=== PATIENT | female | born 1995 | race Caucasian/White ===

== ENCOUNTER 2016-07-27 16:37 | Emergency (ER) | payer MEDICAID, OTHER ==
--- NOTE | 2016-07-27 19:33 | ERNOTE ---
ER Female HPI Date of Service: 07/27/16 Stated Complaint: 6 WEEKS VAGINAL BLEEDING Time Seen by Provider: 07/27/16 19:19 Source: patient Exam Limitations: no limitations Immunizations: IMMUNIZATION HX Immunizations Up to Date Yes History of Influenza Vaccine No Hx Pneumococcal Vaccination No Allergies/Adverse Reactions: Allergies Penicillins Allergy (Verified 07/27/16 17:34) Home Medications: HOME MEDICATIONS Pnv95/Ferrous Fumarate/FA [ Caplet] 1 each PO DAILY 07/27/16 [Last Taken Unknown] - History of Present Illness Narrative: Pt. comes in with c/o spotting vaginal bleeding that started this morning. Pt. states that she noticed some a week ago after she but it resolved and then she noted blood when she urinated that has turned to spotting at this time. Pt. LMP was Jun 10 and that makes her 7 weeks by dates. Pt. denies any recent illness or injury, fever, NVD, SOB, or CP. Pt. denies any other symptoms including pain or cramping a this time. Review of Systems - Review of Systems Constitutional: Present: no symptoms reported. Absent: recent illness, fever, chills, weakness, malaise EYE: Present: no symptoms reported ENT: Present: no symptoms reported Respiratory: Present: no symptoms reported. Absent: shortness of breath, cough , wheezing Cardiology: Present: no symptoms reported. Absent: chest pain, palpitations, edema Gastrointestinal/Abdominal: Present: no symptoms reported. Absent: nausea, vomiting, diarrhea, abdominal pain Genitourinary: Present: discharge - blood. Absent: frequency, dysuria Skin: Present: no symptoms reported. Absent: rash, change in color Neurological: Present: no symptoms reported. Absent: headache, dizziness/light- headedness, numbness, tingling All Other Systems: All systems neg except as marked - Patient's Past Medical History Patient History - Medical: Depression Patient History - Cardiac/Respiratory: No pertinent hx Patient History - Cancer: No Hx of Cancer Patient History - Surgical Procedures: No surgical history LMP (females 10-50): - Social History Living Situations: home Smoking Status: Never smoker Alcohol Use: none Drug Use: none Physical Exam - Physical Exam General Appearance: Present: wd/wn, alert, no apparent distress Eye Exam: Normal inspection: bilateral, PERRL: bilateral, EOMI: bilateral Ears, Nose, Throat: Present: normal ENT inspection, hearing grossly normal, normal pharynx Neck: Present: normal inspection, nontender. Absent: lymphadenopathy (R), lymphadenopathy (L) Respiratory: Present: no respiratory distress, normal breath sounds, no accessory muscle use, chest nontender, lungs clear Cardiovascular/Chest: Present: regular rate, rhythm, no murmur, normal peripheral pulses Gastrointestinal/Abdominal: Present: normal bowel sounds, nontender, nondistended, soft, no organomegaly Back Exam: Present: normal inspection, normal range of motion, no CVA tenderness , no vertebral tenderness Extremity Exam: Present: normal inspection, non-tender, no edema, normal range of motion Neurological Exam: Present: alert, oriented, normal mood/affect, no motor/ sensory deficits Skin Exam: Present: normal color, warm/dry. Absent: pallor, skin rash Pelvic Exam: Present: other - mild spotting ED Progress - Date and Time Seen: Date and Time: 07/27/16 20:[address] Blanc and as I gave pt. rhogam he feels there is not much else to do with pt other than have her follow up as new ob pt. - Results and Orders Patient's Lab Results:: I have reviewed the patient's lab results. - Vital Signs Patient's Vital Signs:: I have reviewed the patient's vital signs. Vital Signs: Vital Signs 07/27/16 17:30 Temperature 36.0 C L Pulse Rate 75 Respiratory 16 Rate Blood Pressure 116/66 O2 Sat by Pulse 100 Oximetry - CT/Ultrasound CT/Ultrasound Narrative: US positive for IUP 6 wk 5 days FHB 130 ? subchorionic hemorrhage. - Progress/Reassessment Chief Complaint: OB Screening Progress:: Unchanged Departure Clinical Impression: Threatened miscarriage, Bleeding in early - Departure Disposition: Home self-care Condition: Good Instructions: Vaginal Bleeding During , First Trimester, Pelvic Rest Additional Instructions: No lifting over 5 pounds, please rest as much as possible, no sex until cleared by OB. Follow up with OB as planned on . Referrals: Clark Verdin DO [Primary Care Provider] -
[2016-07-27 19:39] LABS: Hematocrit 33.5 % (37.0-47.0); Hemoglobin 11.5 gm/dL (12.5-16.0); Mean Cell Volume 85.2 fl (78-100); Mean Corpuscular Hemoglobin 29.3 pg (27-31); Mean Corpuscular Hgb Conc 34.3 g/dl (32-36); Mean Platelet Volume 10.5 fl (6.0-9.5); Neutrophil # 8.4 K/mm3 (1.3-6.0); Neutrophil % 72.4 % (42-75.0); Platelet Count 242 K/mm3 (150-450); Red Blood Count 3.93 M/mm3 (4.2-5.4); Red Cell Distribution Width 12.5 % (11.5-14.0); White Blood Count 11.6 K/mm3 (4.0-10.5)
[2016-07-27] MEDS ORDERED: RHO(D) IMMUNE GLOBULIN 300 MCG DISP.SYRIN IM ONE (20:30)
[2016-07-27 21:22] VITALS: BP 91/57
[2016-07-27 21:25] LABS: Urine Appearance Slightly Cloudy; Urine Bilirubin Negative (NEGATIVE); Urine Blood 250 /ul (NEGATIVE); Urine Color Yellow; Urine Ketone Negative (NEGATIVE); Urine Nitrite Negative (NEGATIVE); Urine Protein 15 mg/dL (NEGATIVE); Urine Urobilinogen Normal (NORMAL); Urine pH 7.5 pH (5.0-7.0)
[2016-07-27 21:26] LABS: Urine Bacteria 1+; Urine WBC 0-5 /hpf (0-5)
== END 2016-07-27 21:48 | disposition home or self-care (01) ==
LOC: ER 16:37
DX: O20.9 Hemorrhage in early pregnancy, unspecified (principal); O20.0 Threatened abortion; Z3A.01 Less than 8 weeks gestation of pregnancy
CPT/HCPCS: 36415; 76801; 76817; 81001; 84702; 85025; 86900; 96372; 99283; J2790

== ENCOUNTER 2017-03-05 23:18 | Inpatient (IN) | payer OTHER ==
[2017-03-05] MEDS ORDERED: ONDANSETRON HCL/PF 2 MG/ML VIAL IV PRN (23:43)
[2017-03-05] MEDS ORDERED: RINGER'S SOLUTION,LACTATED 1,000 ML IV ONE (23:43)
[2017-03-05] MEDS ORDERED: DEXTROSE 5%-LACTATED RINGERS 1,000 ML IV PRN (23:43)
[2017-03-05] MEDS ORDERED: LIDOCAINE HCL 50 ML VIAL PERI PRN (23:43)
[2017-03-05] MEDS ORDERED: OXYTOCIN/DEXTROSE 5%-WATER 30 UNITS/500 ML BAG IV ONE (23:43)
[2017-03-05] MEDS ORDERED: LIDOCAINE HCL 50 ML VIAL ONE (23:56)
[2017-03-06] MEDS ORDERED: OXYTOCIN/DEXTROSE 5%-WATER 30 UNITS/500 ML BAG IV ONE ×2 (00:13→07:14)
[2017-03-06] MEDS ORDERED: DEXTROSE 5%-LACTATED RINGERS 1,000 ML IV PRN (00:13)
[2017-03-06] MEDS ORDERED: LIDOCAINE HCL 50 ML VIAL PERI PRN (00:13)
[2017-03-06] MEDS ORDERED: RINGER'S SOLUTION,LACTATED 1,000 ML IV ONE (00:13)
[2017-03-06] MEDS ORDERED: ONDANSETRON HCL/PF 2 MG/ML VIAL IV PRN (00:29)
[2017-03-06] MEDS ORDERED: BUPIVACAINE HCL/0.9 % NACL/PF 250 ML EP PRN (00:29)
[2017-03-06] MEDS ORDERED: NALOXONE HCL 1 MG/1 ML SYRG IV PRN (00:29)
[2017-03-06] MEDS ORDERED: fentaNYL CITRATE/PF 50 MCG/ML AMPUL IT SCH (00:30)
--- NOTE | 2017-03-06 01:17 | OR ---
Anesthesia Procedure Note - Anesthesia Procedure Note Narrative: Vital Signs - Last Taken Temp 36.9 C 03/06/17 00:50 Pulse 61 03/06/17 00:50 Resp 16 03/06/17 00:50 BP 134/87 03/06/17 00:50 Pulse Ox 100 03/06/17 00:50 03/06/17 01:16 ANESTHESIA PROCEDURE NOTE Date of Procedure: 03/06/2017 Time of procedure: 49. Performed by: Sunny Bowen CRNA Yardage Tufting Machine Operator: None. Preprocedure diagnosis: Active labor. Post procedure diagnosis: Same. Procedure: Insertion of labor epidural. Indications: The patient is a 21 -year-old prima para female in active labor requesting labor epidural for pain management. Findings: See below. Details of the procedure: The patient was placed in a sitting position. Back was prepped with DuraPrep. Patient was then draped in a sterile fashion. Lidocaine 1% was infiltrated to the skin and subcutaneous tissues at the level of the L3 4 interspace. The epidural space was identified using a 18-gauge Tuohy needle with [id number] technique. 20 mcg fentanyl was given intrathecally using a 27 ga. spinal needle. Epidural catheter was inserted without difficulty. Negative test dose was elicited using 5 mL of 1.5% preservative-free lidocaine plus epinephrine 1 200,000. The epidural catheter was then taped and secured in place. EBL: Minimal. Fluids: N/A. Specimen: N/A. Post procedure condition: The patient tolerated the procedure well. No complications were noted. Thank you for this consultation. King CRNA
--- NOTE | 2017-03-06 03:46 | OR ---
Operative Report - Dictated Report Narrative: Spontaneous vaginal delivery of viable female 0322 on 03/06/2017 with Apgars 9 and 9, weighing 2917 g in OA position. Cord clamping delayed approximately 1 minute Placenta delivered complete, intact, with three vessel cord Estimated blood loss: 100 mL Lacerations: First-degree bilateral periurethral laceration with no repair
[2017-03-06] MEDS ORDERED: IBUPROFEN 800 MG TABLET PO PRN ×2 (04:55→07:14)
[2017-03-06] MEDS ORDERED: GLYCERIN/WITCH HAZEL LEAF 40 APPL BOX TP PRN (07:14)
[2017-03-06] MEDS ORDERED: BENZOCAINE/MENTHOL 81 SPRAY CAN TP PRN (07:14)
[2017-03-06] MEDS ORDERED: oxyCODONE HCL/ACETAMINOPHEN 1 TAB TABLET PO PRN (07:14)
[2017-03-06] MEDS ORDERED: BISACODYL 10 MG SUPP.RECT RC PRN (07:14)
[2017-03-06] MEDS ORDERED: HYDROCORTISONE 30 APPL TUBE TP PRN (07:14)
[2017-03-06] MEDS ORDERED: SENNOSIDES 8.6 MG TABLET PO PRN (07:14)
[2017-03-06] MEDS: oxyCODONE HCL/ACETAMINOPHEN 1 TAB TABLET PO PRN ×4 (07:29→21:24)
[2017-03-06] MEDS ORDERED: PRENATAL VITS96/IRON FUM/FOLIC 1 TAB TABLET PO SCH (09:00)
[2017-03-06] MEDS: DOCUSATE SODIUM 100 MG CAPSULE PO SCH ×2 (10:00→21:25)
[2017-03-06] MEDS: PRENATAL VITS96/IRON FUM/FOLIC 1 TAB TABLET PO SCH (10:00)
[2017-03-06] MEDS: IBUPROFEN 800 MG TABLET PO PRN ×2 (13:27→19:39)
[2017-03-07] MEDS: oxyCODONE HCL/ACETAMINOPHEN 1 TAB TABLET PO PRN ×6 (01:01→22:59)
[2017-03-07] MEDS: IBUPROFEN 800 MG TABLET PO PRN ×3 (03:11→15:57)
[2017-03-07] MEDS: PRENATAL VITS96/IRON FUM/FOLIC 1 TAB TABLET PO SCH (08:14)
[2017-03-07] MEDS: DOCUSATE SODIUM 100 MG CAPSULE PO SCH ×3 (08:14→20:02)
--- NOTE | 2017-03-07 10:39 | PN ---
Subjective - Date and Time Seen Date: 03/07/17 Time: 10:37 Objective - Vitals Vitals: Last Vital Signs Temp 36.4 C L 03/07/17 01:01 Pulse 68 03/07/17 01:01 Resp 16 03/07/17 01:01 BP 99/55 03/07/17 01:01 Pulse Ox 98 03/06/17 19:41 Patient denies complaints. Lochia wnl Abdomen - soft, nontender Uterus - firm, at umbilicus - 1 No calf tenderness Impression: day #1 - s/p spontaneous vaginal delivery. Plan: Continue routine care. Cauti Physician Documentation - Urinary Catheter Management Urethral (Vazquez) Date of Insertion: 03/06/17 Time of Insertion: 01:57 Date of Removal: 03/06/17 Time of Removal: 03:10
[2017-03-08] MEDS: oxyCODONE HCL/ACETAMINOPHEN 1 TAB TABLET PO PRN ×4 (01:57→16:02)
[2017-03-08] MEDS: IBUPROFEN 800 MG TABLET PO PRN ×2 (01:57→09:19)
[2017-03-08] MEDS: DOCUSATE SODIUM 100 MG CAPSULE PO SCH (09:19)
[2017-03-08] MEDS: PRENATAL VITS96/IRON FUM/FOLIC 1 TAB TABLET PO SCH (09:19)
--- NOTE | 2017-03-08 13:25 | PN ---
Subjective - Date and Time Seen Date: 03/08/17 Time: 13:24 Objective - Vitals Vitals: Last Vital Signs Temp 36.2 C L 03/08/17 07:00 Pulse 62 03/08/17 07:00 Resp 16 03/08/17 07:00 BP 119/60 03/08/17 07:00 Pulse Ox 97 03/08/17 07:00 Patient denies complaints. Lochia wnl Abdomen - soft, nontender Uterus - firm, at umbilicus - 2 No calf tenderness Impression: day #2 - s/p spontaneous vaginal delivery. Plan: Routine discharge instructions Cauti Physician Documentation - Urinary Catheter Management Urethral (Vazquez) Date of Insertion: 03/06/17 Time of Insertion: 01:57 Date of Removal: 03/06/17 Time of Removal: 03:10
[2017-03-08 15:28] VITALS: BP 129/83
== END 2017-03-08 16:10 | disposition home or self-care (01) | DRG 775 ==
LOC: OBCLINIC 23:18 → OB 23:34
PROVIDERS: ADMIT Obstetrics & Gynecology; ATTEND Obstetrics & Gynecology
PROC: 10E0XZZ Delivery of Products of Conception, External Approach (ICD-10-PCS; principal; 2017-03-06)
PROC: 4A1HXCZ Monitoring of Products of Conception, Cardiac Rate, External Approach (ICD-10-PCS; 2017-03-06)
PROC: 00HU33Z Insertion of Infusion Device into Spinal Canal, Percutaneous Approach (ICD-10-PCS; 2017-03-06)
DX: O26.873 Cervical shortening, third trimester (principal); O99.02 Anemia complicating childbirth; D64.9 Anemia, unspecified; O70.0 First degree perineal laceration during delivery; Z3A.38 38 weeks gestation of pregnancy; Z37.0 Single live birth

== ENCOUNTER 2017-03-11 11:00 | Emergency (ER) | payer OTHER ==
[2017-03-11] MEDS ORDERED: NORMAL SALINE 1,000 ML IV ONE (11:39)
--- NOTE | 2017-03-11 11:48 | ERNOTE ---
Headache ER HPI - Narrative Date of Service: 03/11/17 - General Presenting Symptoms: headache Time Seen by Provider: 03/11/17 11:12 Source: patient Exam Limitations: no limitations - Immun/Allergies/Home Medications Immunizations: IMMUNIZATION HX Immunizations Up to Date Yes History of Influenza Vaccine No Hx Pneumococcal Vaccination No Allergies/Adverse Reactions: Allergies Penicillins Allergy (Verified 03/11/17 11:12) Home Medications: HOME MEDICATIONS Pnv95/Iron Fum/Folic Acid [ Caplet] 1 each PO DAILY 07/27/16 [Last Taken 03/05/17] Ibuprofen [Motrin] 200 - 800 mg PO Q6H PRN #100 tab 03/07/17 [Last Taken Unknown ] - History of Present Illness Narrative: Pt. comes in with c/o headache for three days. Pt. states that she attempted to take ibuprofen for the headache and it worsened. Pt. has been unable to eat due to the nausea and vomiting that is associated with the headache and states that it is worse with standing and sitting up and is improved slightly by laying flat. Pt. gave with an epidural in place 6 days ago and denies any headaches or blood pressure problems during . Review of Systems - Review of Systems Constitutional: Present: no symptoms reported. Absent: fever, chills, weakness , fatigue, malaise EYE: Present: no symptoms reported ENT: Present: no symptoms reported Respiratory: Present: no symptoms reported. Absent: shortness of breath, cough , wheezing Cardiology: Present: no symptoms reported. Absent: chest pain, palpitations, edema Gastrointestinal/Abdominal: Present: no symptoms reported Genitourinary: Present: no symptoms reported Musculoskeletal: Present: no symptoms reported. Absent: back pain, neck pain, joint pain Skin: Present: no symptoms reported. Absent: rash, change in color Neurological: Present: headache. Absent: dizziness/light-headedness, numbness, tingling All Other Systems: All systems neg except as marked - Patient's Past Medical History Patient History - Medical: Depression Patient History - Cardiac/Respiratory: No pertinent hx Patient History - Cancer: No Hx of Cancer Patient History - Surgical Procedures: No surgical history Patient History - Other: None LMP (Calendar): 06/10/16 - Social History Living Situations: home Abuse History: No History of abuse Psych History: Hx of Depression Alcohol Use: none Drug Use: none - Immunizations Immunizations Up to Date: Yes Hx Pneumococcal Vaccination: No History of Influenza Vaccine: No Physical Exam - Physical Exam General Appearance: Present: wd/wn, alert, no apparent distress Head Exam: Present: normal inspection, no evidence of injury Eye Exam: Normal inspection: bilateral, PERRL: bilateral, EOMI: bilateral Ears, Nose, Throat: Present: normal ENT inspection, normal pharynx Neck: Present: normal inspection, nontender. Absent: lymphadenopathy (R), lymphadenopathy (L) Respiratory: Present: no respiratory distress, normal breath sounds, no accessory muscle use, chest nontender, lungs clear Cardiovascular/Chest: Present: regular rate, rhythm, no murmur, normal peripheral pulses Gastrointestinal/Abdominal: Present: normal bowel sounds, nontender, nondistended, soft, no organomegaly Back Exam: Present: normal inspection, normal range of motion, no CVA tenderness , no vertebral tenderness Extremity Exam: Present: normal inspection, non-tender, normal range of motion, no edema Neurological Exam: Present: alert, oriented, normal mood/affect, no motor/ sensory deficits Skin Exam: Present: normal color, warm/dry ED Progress - Date and Time Seen: Date and Time: 03/11/17 12:39 IRENE hendricks here to place blood patch recommends having pt remain for 20minutes post for observation. 03/11/17 13:27 Pt. developed back pain after blood patch placed. - Results and Orders Patient's Lab Results:: I have reviewed the patient's lab results. - Vital Signs Patient's Vital Signs:: I have reviewed the patient's vital signs. Vital Signs: Vital Signs 03/11/17 11:07 Temperature 35.9 C L Pulse Rate 63 Respiratory 12 Rate Blood Pressure 114/62 O2 Sat by Pulse 99 Oximetry - Progress/Reassessment Chief Complaint: Headache Progress:: Improved Departure Clinical Impression: Spinal headache - Departure Disposition: Home self-care Condition: Good Instructions: Epidural Blood Patch for Spinal Headache, Care After, Spinal Headache, Risks and Benefits of Epidural Anesthesia Additional Instructions: Please follow up with [facility]obe architect in 2-3 days. Continue tylenol and Ibuprofen for pain. Referrals: Rachael Patel ARNP [Primary Care Provider] -
[2017-03-11 12:03] LABS: Hematocrit 32.7 % (37.0-47.0); Hemoglobin 11.7 gm/dL (12.5-16.0); Mean Cell Volume 87.2 fl (78-100); Mean Corpuscular Hemoglobin 31.2 pg (27-31); Mean Corpuscular Hgb Conc 35.8 g/dl (32-36); Neutrophil # 7.3 K/mm3 (1.3-6.0); Platelet Count 195 K/mm3 (150-450); Red Blood Count 3.75 M/mm3 (4.2-5.4); Red Cell Distribution Width 11.9 % (11.5-14.0); White Blood Count 9.5 K/mm3 (4.0-10.5)
[2017-03-11 12:17] LABS: Anion Gap 18.1 mmol/L (6.8-13.8); BUN/Creatinine Ratio 17.1 (9.0-21.6); Bilirubin, Total 0.4 mg/dL (0.0-1.1); Ca. Corrected For Albumin 8.8 mg/dL (8.4-10.2); Calcium * 8.3 mg/dL (7.9-10.9); Carbon Dioxide 21.5 mmol/L (24-32.6); Potassium 3.6 mmol/L (3.4-4.6); Total Protein 6.7 gm/dL (6.2-8.2)
--- NOTE | 2017-03-11 13:17 | OR ---
Anesthesia Procedure Note - Anesthesia Procedure Note Narrative: Vital Signs - Last Taken Temp 35.9 C L 03/11/17 11:07 Pulse 56 L 03/11/17 13:11 Resp 18 03/11/17 13:11 BP 125/87 03/11/17 13:11 Pulse Ox 99 03/11/17 13:11 O2 Oxygen Delivery Method Room Air 03/11/17 13:12 ANESTHESIA PROCEDURE NOTE Date of procedure: 03/11/2017. Time of procedure: 1305. Performed by: Sunny Bowen CRNA Scaler Packer: Emergency room RN . Preprocedure diagnosis: Post dural puncture headache. Post procedure diagnosis: Same. Procedure: Epidural blood patch Indications: Post dural puncture headache. Findings: Patient presents with symptoms of PDPH. Patient had labor analgesia via a combined spinal epidural technique on 03/06/2017. Patient was placed in the sitting position. Her back was prepped with DuraPrep. Epidural space was identified at the L3 4 interspace with a 22-gauge Touhy epidural needle. A total of 15 mL of autologous blood was injected into the epidural space. Epidural needle was removed intact. A Band-Aid was applied to the puncture site. EBL: Minimal. Fluids: N/A. Specimen: N/A. Post procedure condition: The patient tolerated the procedure well. No complications were noted. Thank you for this consultation Sunny Bowen CRNA
[2017-03-11] MEDS ORDERED: ACETAMINOPHEN 500 MG TABLET PO ONE (13:25)
[2017-03-11] MEDS ORDERED: KETOROLAC TROMETHAMINE 60 MG/2 ML VIAL IM ONE (13:51)
[2017-03-11] MEDS ORDERED: KETOROLAC TROMETHAMINE 30 MG/ML VIAL ONE (13:55)
[2017-03-11] MEDS ORDERED: KETOROLAC TROMETHAMINE 30 MG/ML VIAL IV ONE (13:55)
[2017-03-11 18:00] VITALS: BP 119/79
== END 2017-03-11 14:00 | disposition home or self-care (01) ==
LOC: ER 11:00
PROC: 3E0S3GC Introduction of Other Therapeutic Substance into Epidural Space, Percutaneous Approach (ICD-10-PCS; principal; 2017-03-11)
DX: G97.1 Other reaction to spinal and lumbar puncture (principal)

== ENCOUNTER 2019-04-22 11:07 | Inpatient (IN) ==
[2019-04-22] MEDS ORDERED: ONDANSETRON 4 MG TAB.RAPDIS PO PRN (11:22)
[2019-04-22] MEDS ORDERED: DEXTROSE 5%-LACTATED RINGERS 1,000 ML IV PRN (11:22)
--- NOTE | 2019-04-22 11:45 | HP ---
Chief Complaint - Chief Complaint Date of Service: 04/22/19 Time of Service: 11:39 Chief Complaint: contractions History of Present Illness: 23 yo at 38 1/7 wks presents to L&D from office for labor. Pt doesn't feel contractions are very painful but is having them every 2-3 min and making cervical change. This complicated by anemia, h/o migraine, and, h/o anxiety/depression. Rh negative Rubella immune GBS negative Medical History (Updated 02/12/19 @ 13:32 by Freeman Roque RN) Migraine (Resolved) Onset Date: Unknown occasional Depressed (Acute) Onset Date: Unknown last meds for tx 2017 Anxiety (Acute) Onset Date: Unknown last med tx 2017 Headache Onset Date: Unknown Anemia Onset Date: ~2016 2016 & 2019-w/pregnancies UTI (urinary tract infection) Onset Date: Unknown Surgical History: Surgical History (Updated 07/23/18 @ 11:39 by Araceli Garcia CMA) History of wisdom tooth extraction Onset Date: Unknown at 19 years old Family History: Family History (Updated 07/23/18 @ 11:37 by Araceli Garcia CMA) Mother Alive and well Father Alive and well Brother Alive and well Sister Alive and well Grandmother COPD (chronic obstructive pulmonary disease) Cancer Grandfather Hypertension Social History: (Last Reviewed 04/22/19 @ 11:41 by Clark Verdin DO) Social History: Marital status: Single household members: children, significant other current occupational status: unemployed Highest education level completed: high school graduate Service: No Tobacco: Smoking Status: Former smoker Alcohol: alcohol intake: former Substance Use: substance use type: does not use Dietary Habits: caffeine: Yes Type: coffee Personal Safety: victim of physical abuse: No victim of emotional abuse: No victim of sexual abuse: No Review Of Systems (GEN) - Review of Systems Generalized/Overall Review: Present: No Symptoms Reported EENTM: Present: No Symptoms Reported Respiratory: Present: No Symptoms Reported Cardiac: Present: No Symptoms Reported Abdominal: Present: Other - mild pain with contractions Genitourinary: Present: No Symptoms Reported, Other - vaginal pressure Musculoskeletal: Present: No Symptoms Reported Neurological: Present: No Symptoms Reported Skin: Present: No Symptoms Reported Endocrine: Present: No Symptoms Reported Immunizations: IMMUNIZATION HX Immunizations Up to Date Yes History of Influenza Vaccine No Hx Pneumococcal Vaccination No Allergies/Adverse Reactions: Allergies Allergy/AdvReac Type Severity Reaction Status Date / Time Penicillins Allergy Unknown unknown Verified 04/22/19 10:03 Home Medications: HOME MEDICATIONS vitamins no.121-iron 28 mg-folic acid 800 mcg tablet 1 tab PO DAILY tab 09/29/18 [Last Taken Unknown] ferrous sulfate 325 mg (65 mg iron) tablet 325 mg PO DAILY #30 tab 02/12/19 [Last Taken Unknown] Exam - Exam Vital Signs: Vital Signs - Last Taken Temp 36.9 C 04/22/19 11:35 Pulse 82 04/22/19 11:35 Resp 20 04/22/19 11:35 BP 104/71 04/22/19 11:35 Pulse Ox 99 04/22/19 11:35 Constitutional: Present: Alert, Oriented x3, Cooperative, No distress ENT Exam: Present: hearing grossly normal Breasts: Present: Exam deferred Respiratory: Present: lungs clear, no respiratory distress Cardiovascular/Chest: Present: regular rate, rhythm Abdomen: Present: soft, nontender, no rebound tenderness, other - gravid /Rectal: Present: Other - cervix 5/90/-1 Extremity: Present: no pedal edema, no calf tenderness Skin Exam: Present: normal color, warm/dry, no cyanosis Neurologic: Present: alert, normal mood/affect, oriented x 3 Appearance: Present: appropriate appearance, appropriate insight Eye contact: Present: cooperative, good eye contact Thoughts: Present: normal thought pattern, normal mood /affect Diagnostic Studies: NST reactive. Assessment/Plan - Assessment/Plan (1) Labor established Assessment: Admit for routine management of labor. Epidural and Pitocin PRN. Problem: Acute
[2019-04-22 12:31] LABS: Cocaine Ur Negative (NEGATIVE); Urine Barbiturate Negative (NEGATIVE); Urine Benzodiazepines Negative (NEGATIVE); Urine Opiates Negative (NEGATIVE); Urine PCP Negative (NEGATIVE); Urine THC Negative (NEGATIVE)
[2019-04-22] MEDS: RINGER'S SOLUTION,LACTATED 1,000 ML IV ONE ×2 (12:49→14:45)
--- NOTE | 2019-04-22 13:04 | PN ---
Progess Note - Interim Date: 04/22/19 Time: 13:02 Narrative: 04/22/19 13:02 Patient desiring epidural Vital signs stable. FHT: 145 baseline, reassuring contractions q 2-3 min Cervix: 5-6/1 100/-1, AROM-clear Impression: Intrauterine at 38 1/7 weeks in labor Plan: Start fluid bolus in preparation for epidural placement.
[2019-04-22] MEDS ORDERED: ONDANSETRON HCL/PF 2 MG/ML VIAL IV PRN (13:30)
[2019-04-22] MEDS ORDERED: fentaNYL CITRATE/PF 50 MCG/ML AMPUL IT SCH (13:30)
[2019-04-22] MEDS ORDERED: NALOXONE HCL 1 MG/1 ML SYRG IV PRN (13:30)
[2019-04-22] MEDS ORDERED: BUPIVACAINE HCL/0.9 % NACL/PF 250 ML EP PRN (13:30)
--- NOTE | 2019-04-22 14:00 | ANES ---
Anesthesia Pre Procedure Eval Vitals/Labs: Last Vital Signs Temp 36.9 C 04/22/19 11:35 Pulse 82 04/22/19 11:35 Resp 20 04/22/19 11:35 BP 104/71 04/22/19 11:35 Pulse Ox 99 04/22/19 11:35 HOME MEDICATIONS ferrous sulfate 325 mg (65 mg iron) tablet 325 mg PO DAILY #30 tab 02/12/19 [Last Taken Unknown] Vits96/Iron Fum/Folic [ S] 1 tab PO DAILY 04/22/19 [Last Taken 04/21/19] Allergies/Adverse Reactions: Allergies Allergy/AdvReac Type Severity Reaction Status Date / Time Penicillins Allergy Unknown unknown Verified 04/22/19 10:03 - Planned Procedure Planned Procedure: ACTIVE LABOR Medication List Reviewed:: Yes Allergies Verified: Yes Medical History (Updated 04/22/19 @ 11:45 by Clark Verdin DO) Migraine (Resolved) Onset Date: Unknown occasional Depressed (Acute) Onset Date: Unknown last meds for tx 2016 Anxiety (Acute) Onset Date: Unknown last med tx 2016 Headache Onset Date: Unknown Anemia Onset Date: ~2016 2016 & 2019-w/pregnancies UTI (urinary tract infection) Onset Date: Unknown Surgical History (Updated 04/22/19 @ 11:45 by Clark Verdin DO) History of wisdom tooth extraction Onset Date: Unknown at 19 years old Family History (Updated 07/23/18 @ 11:37 by Araceli Garcia CMA) Mother Alive and well Father Alive and well Brother Alive and well Sister Alive and well Grandmother COPD (chronic obstructive pulmonary disease) Cancer Grandfather Hypertension - Family Anesthesia History Family History:: no untoward family reactions to anesthesia - Airway/Neck/Teeth Within Normal Limits:: Yes Teeth Condition: intact Neck Exam: full range of motion Mallampatti Score: 1 Thyromental (T-M) distance: > 6 cm Mandibulo Hyoid distance: > 3 cm - Respiratory Respiratory History: asthma Respiratory Physical: lungs clear Smoking Status: Never smoker Sleep Apnea currently treated: No Sleep Apnea by current assessment: No - Cardiovascular Tolerate Activity: Good Heart Sounds: S1 & S2, Regular - Anesthesia Assessment and Plan ASA Class: PS, II, E Anesthesia Type Plan: Epidural Planned difficult intubation/equipment available: No
--- NOTE | 2019-04-22 14:00 | ANES ---
Post Anesthesia Discharge - Transfer of Care Transfer of Care handoff given to nurse: Yes - Anesthesia Post Op Note Anesthesia Post Op Note: Care transferred to OB RN
--- NOTE | 2019-04-22 14:01 | ANES ---
Post Anesthesia Assessment - Vital Signs Vitals: Last Vital Signs Temp 36.9 C 04/22/19 11:35 Pulse 82 04/22/19 11:35 Resp 20 04/22/19 11:35 BP 104/71 04/22/19 11:35 Pulse Ox 99 04/22/19 11:35 Airway Patency: Normal - Mental Status Level Of Consciousness: Awake - Pain Level Pain Score: 2 - N/V Assessment Nausea/Vomiting Presence: None Dehydration:: No
--- NOTE | 2019-04-22 14:02 | ANES ---
Anesthesia Procedure Note Procedure Note: ANESTHESIA PROCEDURE NOTE Date of Procedure: 04/22/2019 Time of procedure: 1345. Performed by: Sunny Bowen CRNA Customer Success Advocate: None. Preprocedure diagnosis: Active labor. Post procedure diagnosis: Same. Procedure: Insertion of labor epidural. Indications: The patient is a 23-year-old multigravid female in active labor requesting labor epidural for pain management. Findings: See below. Details of the procedure: The patient was placed in a sitting position. Back was prepped with DuraPrep. Patient was then draped in a sterile fashion. Lidocaine 1% was infiltrated to the skin and subcutaneous tissues at the level of the L3 4 interspace. The epidural space was identified using a 18-gauge Tuohy needle with [id number] technique. 20 mcg fentanyl was given intrathecally using a 27 ga. spinal needle. Epidural catheter was inserted without difficulty. Negative test dose was elicited using 5 mL of 1.5% preservative-free lidocaine plus epinephrine 1 200,000. The epidural catheter was then taped and secured in place. EBL: Minimal. Fluids: N/A. Specimen: N/A. Post procedure condition: The patient tolerated the procedure well. No complications were noted. Thank you for this consultation. King CRNA
[2019-04-22] MEDS: OXYTOCIN/DEXTROSE 5%-WATER 30 UNITS/500 ML BAG IV ONE ×2 (14:52→16:30)
[2019-04-22] MEDS ORDERED: SENNOSIDES 8.6 MG TABLET PO PRN (16:40)
[2019-04-22] MEDS ORDERED: HYDROCORTISONE 30 APPL TUBE TP PRN (16:40)
[2019-04-22] MEDS ORDERED: BISACODYL 10 MG SUPP.RECT RC PRN (16:40)
[2019-04-22] MEDS ORDERED: GLYCERIN/WITCH HAZEL LEAF 40 APPL BOX TP PRN (16:40)
[2019-04-22] MEDS ORDERED: OXYTOCIN/DEXTROSE 5%-WATER 30 UNITS/500 ML BAG IV ONE (16:40)
[2019-04-22] MEDS ORDERED: BENZOCAINE/MENTHOL 81 SPRAY CAN TP PRN (16:40)
--- NOTE | 2019-04-22 16:59 | OR ---
Operative Report - Dictated Report Narrative: Spontaneous vaginal delivery of vigorously crying viable female at 1624 on 04/22/2019 with Apgars 9 and 9, weighing 3390 g in ADRIANA position with left hand at face. Cord clamping delayed approximately 1 minute Placenta delivered complete, intact, with three vessel cord Estimated blood loss: Less than 50 ml Anesthesia: Epidural Lacerations: None History for MU History for MU Definition: * The number of deliveries resulting in a live the patient experienced prior to current hospitalization * The previous delivery of live twins or any live multiple gestation is considered one live event. *If primagravida or nulliparous is documented select zero for the number of previous live births. Live Events: Live Events: 1
[2019-04-22] MEDS: oxyCODONE HCL/ACETAMINOPHEN 1 TAB TABLET PO PRN ×2 (17:59→22:17)
[2019-04-22] MEDS: IBUPROFEN 800 MG TABLET PO PRN (18:00)
[2019-04-22] MEDS ORDERED: RHO(D) IMMUNE GLOBULIN 1,500 UNIT SYRINGE IM ONE (22:00)
[2019-04-22] MEDS: DOCUSATE SODIUM 100 MG CAPSULE PO SCH (22:06)
[2019-04-23] MEDS: IBUPROFEN 800 MG TABLET PO PRN ×3 (02:34→18:49)
[2019-04-23] MEDS: oxyCODONE HCL/ACETAMINOPHEN 1 TAB TABLET PO PRN ×4 (03:57→18:49)
[2019-04-23] MEDS: PRENATAL VITS96/IRON FUM/FOLIC 1 TAB TABLET PO SCH (08:24)
[2019-04-23] MEDS: DOCUSATE SODIUM 100 MG CAPSULE PO SCH ×2 (08:24→21:58)
[2019-04-23] MEDS: FERROUS SULFATE 325 MG TABLET PO SCH (08:24)
--- NOTE | 2019-04-23 21:25 | PN ---
Subjective - Date and Time Seen Date: 04/23/19 Time: 21:24 Objective - Vitals Vitals: Last Vital Signs Temp 37.2 C 04/23/19 20:02 Pulse 68 04/23/19 20:02 Resp 16 04/23/19 20:02 BP 117/74 04/23/19 20:02 Pulse Ox 99 04/23/19 20:02 Patient complains of headache 6 out of 10, worse sitting up, better lying down flat. Has history of spinal headache with last delivery. Lochia wnl abdomen - soft, nontender Uterus -firm, at umbilicus - 2 no calf tenderness Impression: day #1 - s/p spontaneous vaginal delivery. Plan: Continue routine care. With patient stay lying down tonight and give extra caffeine. If headache still present tomorrow we will consult anesthesia regarding possible blood patch. Cauti Physician Documentation - Urinary Catheter Management Urethral (Vazquez) Date of Insertion: 04/22/19 Time of Insertion: 14:30 Date of Removal: 04/22/19 Time of Removal: 16:10 Assessment/Plan - Problems/Diagnosis (1) Labor established Problem: Acute
[2019-04-24] MEDS: oxyCODONE HCL/ACETAMINOPHEN 1 TAB TABLET PO PRN ×2 (00:10→07:36)
[2019-04-24] MEDS: IBUPROFEN 800 MG TABLET PO PRN ×2 (00:10→07:36)
[2019-04-24] MEDS: FERROUS SULFATE 325 MG TABLET PO SCH ×2 (07:36→12:08)
[2019-04-24] MEDS: DOCUSATE SODIUM 100 MG CAPSULE PO SCH ×2 (07:36→12:08)
[2019-04-24] MEDS: PRENATAL VITS96/IRON FUM/FOLIC 1 TAB TABLET PO SCH ×2 (07:36→12:08)
[2019-04-24 07:52] VITALS: BP 105/62
--- NOTE | 2019-04-24 08:35 | PN ---
Subjective - Date and Time Seen Date: 04/24/19 Time: 08:33 Objective - Vitals Vitals: Last Vital Signs Temp 36.7 C 04/24/19 07:41 Pulse 73 04/24/19 07:41 Resp 18 04/24/19 07:41 BP 105/62 04/24/19 07:41 Pulse Ox 99 04/24/19 07:41 Patient still with headache she rates 6 out of 10 has not been up moving around yet. If headache is worse with ambulation, will have anesthesia evaluate. [Lochia wnl] Abdomen - soft, nontender Uterus - [firm, at umbilicus - 2] No calf tenderness Impression: day #2 - s/p [spontaneous vaginal delivery.] headache-probable spinal headache. Plan: [Routine discharge instructions once headache issue resolved.] Cauti Physician Documentation - Urinary Catheter Management Urethral (Vazquez) Date of Insertion: 04/22/19 Time of Insertion: 14:30 Date of Removal: 04/22/19 Time of Removal: 16:10 Assessment/Plan - Problems/Diagnosis (1) Labor established Problem: Acute
[2019-04-24] MEDS ORDERED: diphenhydrAMINE HCL 50 MG/ML VIAL IV ONE (11:52)
[2019-04-24] MEDS ORDERED: METOCLOPRAMIDE HCL 5 MG/ML VIAL IV SCH (12:00)
== END 2019-04-24 17:05 | disposition home or self-care (01) | DRG 807 ==
LOC: OB 11:07
PROVIDERS: ADMIT Obstetrics & Gynecology; ATTEND Obstetrics & Gynecology
CPT/HCPCS: 59025; 80307; 85460; J2790